=== PATIENT | female | born 1955 | race Caucasian/White ===

== ENCOUNTER 2019-07-26 12:44 | Emergency (ER) | payer OTHER ==
[~2019-07-26] VITALS: Ht 170.2 cm; Wt 60.8 kg
[~2019-07-26 12:44] MED LIST: PREG25CA PO; ZOLP5TAB2 PO
[2019-07-26] MEDS ORDERED: DULO20CA PO (13:02)
[2019-07-26] MEDS ORDERED: TRAZ5POW MC (13:02)
[2019-07-26] MEDS ORDERED: PREG50CA PO (13:02)
--- NOTE | 2019-07-26 13:20 | NUR ---
Dr Flores at the bedside for MSE.
--- NOTE | 2019-07-26 13:32 | NUR ---
Patient discharged to home in stable conditon. Written and verbal after care instructions given. Patient verbalizes understanding of instructions.
[2019-07-26 13:33] VITALS: BP 144/78
== END 2019-07-26 13:34 | disposition home or self-care (01) ==
LOC: ER 12:45
DX: T50.905A Adverse effect of unspecified drugs, medicaments and biological substances, initial encounter (principal); Z79.899 Other long term (current) drug therapy; Y92.89 Other specified places as the place of occurrence of the external cause
CPT/HCPCS: A4663